=== PATIENT | male | born 1955 | race Two or more races ===

== ENCOUNTER 2019-03-03 05:30 | Day surgery (SDC) | payer OTHER ==
[~2019-03-03 05:30] MED LIST: SYNTHROID50 MCG PO
[2019-03-03] MEDS ORDERED: PERCOCET 5-3251 EACH PO (10:20)
== END 2019-03-03 16:05 | disposition home or self-care (01) ==
LOC: CIR.AMB 05:30
DX: C20 Malignant neoplasm of rectum (principal)
CPT/HCPCS: 36561; C1751

== ENCOUNTER 2019-07-17 06:25 | Day surgery (SDC) | payer OTHER ==
[~2019-07-17 06:25] MED LIST changes: +PERCOCET 5-3251 EACH PO
== END 2019-07-17 11:05 | disposition home or self-care (01) ==
LOC: AMB-ENDOS 06:25 → EDBD 12:45
DX: D12.8 Benign neoplasm of rectum (principal)

== ENCOUNTER 2019-07-24 13:52 | Inpatient (IN) | payer OTHER ==
[~2019-07-24] VITALS: Ht 170.2 cm; Wt 66.2 kg
== END 2019-08-05 14:29 | disposition home or self-care (01) | DRG 348 ==
LOC: SURH 07-31 09:45 → O/R 08-04 06:21 → SURH 08-04 07:00
PROVIDERS: ADMIT Surgery
PROC: 0DBP7ZZ Excision of Rectum, Via Natural or Artificial Opening (ICD-10-PCS; principal; 2019-08-04 07:00)
DX: K62.5 Hemorrhage of anus and rectum (principal); C20 Malignant neoplasm of rectum; E03.8 Other specified hypothyroidism

== ENCOUNTER 2020-05-06 06:20 | Day surgery (SDC) | payer OTHER | END 2020-05-06 11:00 | disposition home or self-care (01) | LOC: AMB-ENDOS 06:20 | PROVIDERS: ATTEND Surgery | DX: K62.89 Other specified diseases of anus and rectum (principal); Z20.822 Contact with and (suspected) exposure to COVID-19 ==

== ENCOUNTER 2022-11-27 06:00 | Day surgery (SDC) | payer OTHER ==
[~2022-11-27] VITALS: Ht 172.7 cm; Wt 67.6 kg
[2022-11-27] MEDS ORDERED: TRAM1TAB98 PO (11:27)
== END 2022-11-27 12:00 | disposition home or self-care (01) ==
LOC: CIR.AMB 06:00
PROVIDERS: ATTEND Surgery
DX: C20 Malignant neoplasm of rectum (principal); K62.5 Hemorrhage of anus and rectum; I10 Essential (primary) hypertension; Z20.822 Contact with and (suspected) exposure to COVID-19